=== PATIENT | female | born 1970 ===

== ENCOUNTER 2017-06-06 20:01 | Emergency (ER) | payer SELFPAY ==
[2017-06-06 20:01] VITALS: BMI 25.9
[2017-06-06 20:12] VITALS: BP 131/80; PULSE 83; RESP 18; TEMP 99.4; O2SAT 100
--- NOTE | 2017-06-06 21:10 | ED PDOC ---
HPI: Abdomen Time Seen by Provider: 06/06/17 20:47 Chief Complaint (Nursing): Abdominal Pain Chief Complaint (Provider): Suprapubic pain History Per: Patient History/Exam Limitations: no limitations Onset/Duration Of Symptoms: Days Outside of [place] travel?: No Current Symptoms Are (Timing): Still Present Location Of Pain/Discomfort: Suprapubic Associated Symptoms: Diarrhea, Loss Of Appetite. denies: Fever, Nausea, Vomiting, Constipation, Urinary Symptoms Exacerbating Factors: None Additional Complaint(s): Pt with history of endometrioisis presents with suprapubic pain, vaginal bleeding and watery diarrhea x 15 hours. no fever/chills. Pt reports pain cramping with similar characteristic as the pain she normally gets but stronger. Pt states her menses was normal and ended 2 days ago. Pt reports normal menses in the past. Past Medical History Reviewed: Historical Data, Nursing Documentation, Vital Signs Vital Signs: Last Vital Signs Temp 99.4 F 06/06/17 20:04 Pulse 83 06/06/17 20:04 Resp 18 06/06/17 20:04 BP 131/80 06/06/17 20:04 Pulse Ox 100 06/06/17 21:14 - Medical History PMH: Gall Bladder Disease, Seizures Denies: Depression, Chronic Kidney Disease Other PMH: Endometriosis - Surgical History Surgical History: Cholecystectomy - Family History Family History: States: Unknown Family Hx - Living Arrangements Living Arrangements: With Family - Social History Current smoker - smoking cessation education provided: No - Immunization History Hx Tetanus Toxoid Vaccination: No Hx Influenza Vaccination: No Hx Pneumococcal Vaccination: No - Home Medications Home Medications: Ambulatory Orders Medication Instructions Recorded Ibuprofen [Motrin] 600 mg PO DAILY 01/29/16 Divalproex [Depakote DR] 250 mg PO BID 02/15/16 traMADol [Ultram] 50 mg PO PRN PRN 04/14/17 traMADol [Ultram] 50 mg PO TID #15 tab 04/14/17 - Allergies Allergies/Adverse Reactions: Allergies Allergy/AdvReac Type Severity Reaction Status Date / Time metoclopramide HCl Allergy Severe ANAPHYLAXIS Verified 01/29/16 18:07 [From [facility]] Physical Exam - Reviewed Nursing Documentation Reviewed: Yes Vital Signs Reviewed: Yes - Physical Exam Appears: Positive for: Well, Non-toxic, No Acute Distress Head Exam: Positive for: ATRAUMATIC, NORMAL INSPECTION, NORMOCEPHALIC Skin: Positive for: Normal Color, Warm, DRY Eye Exam: Positive for: Normal appearance ENT: Positive for: Normal ENT Inspection Neck: Positive for: Normal, Painless ROM Cardiovascular/Chest: Positive for: Regular Rate, Rhythm Respiratory: Positive for: Normal Breath Sounds. Negative for: Accessory Muscle Use, Respiratory Distress Gastrointestinal/Abdominal: Positive for: Bowel Sounds, Soft, Tenderness ( Suprapubic ). Negative for: Normal Exam Back: Positive for: Normal Inspection Extremity: Positive for: Normal ROM Neurologic/Psych: Positive for: Alert, Oriented - Laboratory Results Result Diagrams: 06/06/17 21:09 - ECG O2 Sat by Pulse Oximetry: 100 Medical Decision Making Medical Decision Making: Pt does not want to wait for CMP. Pt found with 10cc flush and tab in bag, security and Marc charge nurse aware. Disposition - Clinical Impression Clinical Impression: Abdominal pain - Patient ED Disposition Is Patient to be Admitted: No Counseled Patient/Family Regarding: Diagnosis, Need For Followup - Disposition [facility]errals: [facility] [Outside] Disposition: Routine/Home Disposition Time: 22:14 Condition: GOOD Instructions: Endometriosis (ED) Forms: [facility] (Welsh)
[2017-06-06 21:23] LABS: BASO # 0.1 K/uL (0.0-0.2); BASO % 0.7 % (0.0-2.0); HEMATOCRIT 32.4 % (34.0-47.0); LYMPH % 10.5 % (20.0-40.0); MEAN CELL VOLUME 96.8 fl (81.0-99.0); MEAN CORPUSCULAR HEMOGLOBIN 33.2 pg (27.0-31.0); MEAN CORPUSCULAR HGB CONC 34.3 g/dL (33.0-37.0); MONO # 0.6 K/uL (0.0-0.8); MONO % 6.1 % (0.0-10.0); NEUT # 7.8 K/uL (1.8-7.0); NEUT % 82.7 % (50.0-75.0); NRBC % 0.1 % (0.0-0.0); WHITE BLOOD COUNT 9.4 K/uL (4.8-10.8)
[2017-06-06 21:33] LABS: PARTIAL THROMBOPLASTIN TIME 27.4 Seconds (25.6-37.1)
[2017-06-06 21:47] LABS: RBC URINE 99 /hpf (0-3); URINE BACTERIA RARE (<OCC); URINE BILIRUBIN NEGATIVE (NEGATIVE); URINE BLOOD LARGE (NEGATIVE); URINE COLOR STRAW (YELLOW); URINE GLUCOSE (UA) NEG (Normal); URINE KETONE NEGATIVE (NEGATIVE); URINE LEUKOCYTE ESTERASE NEG Leu/uL (Negative); URINE PROTEIN NEGATIVE (NEGATIVE); URINE UROBILINOGEN 0.2-1.0 mg/dL (0.2-1.0); WBC URINE 5 /hpf (0-5)
[2017-06-06 22:53] LABS: ALB/GLOB RATIO 1.1 (1.0-2.1); ALKALINE PHOSPHATASE 91 U/L (38-126); ALT/SGPT 24 U/L (9-52); AST/SGOT 63 U/L (14-36); BILIRUBIN,TOTAL 1.1 mg/dl (0.2-1.3); BLOOD UREA NITROGEN 7 mg/dl (7-17); CALCIUM 9.2 mg/dL (8.4-10.2); CARBON DIOXIDE 22 mmol/L (22-30); CHLORIDE 107 mmol/L (98-107); GFR AFRICAN-AMERICAN > 60; GLUCOSE,RANDOM 110 mg/dL (65-105); SODIUM 143 mmol/l (132-148); TOTAL PROTEIN 8.7 G/DL (6.3-8.2)
[2017-06-06 22:58] LABS: POTASSIUM 4.8 MMOL/L (3.6-5.0)
== END 2017-06-06 22:40 | disposition home or self-care (01) ==
LOC: H.ER 20:01
DX: R10.9 Unspecified abdominal pain (principal); R19.7 Diarrhea, unspecified
CPT/HCPCS: 80053; 81003; 81025; 85025; 85610; 85730; 87086; 96372; 99282; J2270

== ENCOUNTER 2019-01-01 20:24 | Emergency (ER) | payer MEDICAID ==
[2019-01-01 20:25] VITALS: BMI 25.9
--- NOTE | 2019-01-01 20:57 | ED PDOC ---
HPI: General Adult Time Seen by Provider: 01/01/19 20:50 Chief Complaint (Nursing): Medical Clearance Chief Complaint (Provider): Medical Clearance History Per: Patient History/Exam Limitations: no limitations Onset/Duration Of Symptoms: Days Current Symptoms Are (Timing): Still Present Additional Complaint(s): 48 y/o female with a PMHx of endometriosis and seizure disorder brought in by police for medical and psychiatric clearance. Patient notes of having right ankle pain after mis-stepping of which she was evaluated at [facility] [place] ago and was told that the XR was negative. Patient reports pain is located along the medial aspect of the ankle and anterior aspect of the leg. PMD: Past Medical History Reviewed: Historical Data, Nursing Documentation, Vital Signs Vital Signs: Last Vital Signs Temp 98.3 F 01/01/19 20:36 Pulse 81 01/01/19 20:36 Resp 18 01/01/19 20:36 BP 135/74 01/01/19 20:36 Pulse Ox 99 01/01/19 20:36 - Medical History PMH: Gall Bladder Disease, Seizures Denies: Depression, Chronic Kidney Disease Other PMH: Endometriosis - Surgical History Surgical History: Cholecystectomy - Family History Family History: States: Unknown Family Hx - Immunization History Hx Tetanus Toxoid Vaccination: No Hx Influenza Vaccination: No Hx Pneumococcal Vaccination: No - Home Medications Home Medications: Ambulatory Orders Medication Instructions Recorded Divalproex [Depakote DR] 250 mg PO BID 02/15/16 traMADol [Ultram] 50 mg PO PRN PRN 04/14/17 Naproxen 375 mg PO Q8 PRN #21 tablet 01/01/19 - Allergies Allergies/Adverse Reactions: Allergies Allergy/AdvReac Type Severity Reaction Status Date / Time metoclopramide HCl Allergy Severe ANAPHYLAXIS Verified 01/01/19 20:36 [From [facility]] Review of Systems ROS Statement: Except As Marked, All Systems Reviewed And Found Negative Constitutional: Positive for: Other (medical and psychiatric clearance) Musculoskeletal: Positive for: Leg Pain (right leg pain), Foot Pain (right ankle pain ) Physical Exam - Reviewed Nursing Documentation Reviewed: Yes Vital Signs Reviewed: Yes - Physical Exam Appears: Positive for: No Acute Distress Extremity: Positive for: Tenderness (Tenderness of the anterior leg. Non-tender foot). Negative for: Swelling - ECG O2 Sat by Pulse Oximetry: 99 (RA) Pulse Ox Interpretation: Normal - Progress ED Course And Treament: SEEN BY CRISIS CLEARED BY DR. MAHER. D/C HOME DIAGNOSIS ADJUSTMENT DISORDER XRY OF RIGHT ANKLE: NO FX XRY OF RIGHT TIB-FIB: NO FX CALLED TO BEDSIDE 22:00PM PATIENT IS CONCERNED SHE IS HAVING SYMPTOMS OF WITHDRAWAL. VITALS REPEATED WNL PULSE OX 100% PULSE 80 BP 102/80. PATIENT NOTED TO BE DRY HEAVING AND HYPERVENTILATING. PATIENT STATES SHE IS ANXIOUS B/C SHE HAS CHRONIC LOWER ABDOMINAL PAIN FROM ENDOMETRIOSIS AND CURRENTLY FEELS LIKE SHE IS IN PAIN. CONCERNED THAT SHE HASN'T TAKEN TRAMADOL SINCE YESTERDAY. ZOFRAN 4 MG IM TRAMADOL 50 MG X 1 DOSE Medical Decision Making Medical Decision Making: Time: 2050 Impression: Psychiatric and Medical Clearance Plan: -- Tylenol 975 mg PO -- Ankle Right 3 Views XR -- Tibia Fibula Right XR Scribe Attestation: Documented by Jazz Melendez, acting as a scribe Indigo Trevino PA-C. Provider Scribe Attestation: All medical record entries made by the Scribe were at my direction and personally dictated by me. I have reviewed the chart and agree that the record accurately reflects my personal performance of the history, physical exam, me dical decision making, and the department course for this patient. I have also personally directed, reviewed, and agree with the discharge instructions and disposition. Disposition - Clinical Impression Clinical Impression: Hyperventilation syndrome, Adjustment disorder, Right ankle sprain - Patient ED Disposition Is Patient to be Admitted: No - Disposition Referrals: Podiatry Clinic [Outside] Disposition: Routine/Home Disposition Time: 22:07 Condition: FAIR Additional Instructions: PATIENT IS MEDICALLY AND PSYCHIATRICALLY CLEARED FOR INCARCERATION Prescriptions: Naproxen 375 mg PO Q8 PRN #21 tablet PRN Reason: Pain, Moderate (4-7) Instructions: Ankle Sprain, Adjustment Disorder, Anxiety, Adult (DC)
[2019-01-01 22:53] VITALS: BP 144/83; PULSE 91; RESP 18; TEMP 97.9; O2SAT 100
--- NOTE | 2019-01-02 16:48 | RAD ---
Date of service: 01/01/2019 PROCEDURE: Right Ankle Radiographs. HISTORY: Ankle injury COMPARISON: Comparison made with concurrent radiographs of the right tibia and fibula. TECHNIQUE: 3 views obtained. FINDINGS: BONES: The current study reveals no definitive evidence of acute displaced fracture nor dislocation. Talar dome intact there is a small linear lucency in the medial cortex of the distal tibial diametaphysis that probably represents a vascular groove. JOINTS: Ankle mortise maintained. No significant osteoarthritis SOFT TISSUES: There is moderate to fairly significant medial soft tissue swelling adjacent to the distal 3rd of the left tibia and fibula extending into the inferiorly over the medial malleolus. OTHER FINDINGS: None. IMPRESSION: No definitive radiographic evidence of acute displaced fracture nor dislocation. There is moderate to fairly significant medial soft tissue swelling. Probable vascular groove along the distal medial tibial diametaphysis..
--- NOTE | 2019-01-02 16:51 | RAD ---
Date of service: 01/01/2019 PROCEDURE: Radiographs of the right tibia and fibula. HISTORY: Right ankle injury COMPARISON: Comparison made with concurrent radiographs of the right ankle TECHNIQUE: Frontal and lateral views obtained. 2 views obtained. FINDINGS: BONES: The current study reveals no definitive evidence of acute displaced fracture nor dislocation. Talar dome intact there is a small linear lucency in the medial cortex of the distal tibial diametaphysis that probably represents a vascular groove. JOINT SPACES: Unremarkable. OTHER FINDINGS: There is moderate to fairly significant medial soft tissue swelling adjacent to the distal 1/3 of the left tibia and fibula extending into the inferiorly over the medial malleolus. IMPRESSION: The current study reveals no definitive evidence of acute displaced fracture nor dislocation. Talar dome intact there is a small linear lucency in the medial cortex of the distal tibial diametaphysis that probably represents a vascular groove. Moderate to fairly significant medial soft tissue swelling.
== END 2019-01-01 23:05 ==
LOC: H.ER 20:24
DX: F43.20 Adjustment disorder, unspecified (principal); Z00.8 Encounter for other general examination; S93.401A Sprain of unspecified ligament of right ankle, initial encounter; F45.8 Other somatoform disorders; G40.909 Epilepsy, unspecified, not intractable, without status epilepticus; N80.9 Endometriosis, unspecified; Z88.8 Allergy status to other drugs, medicaments and biological substances
CPT/HCPCS: 73590; 73610; 96372; 99283; J2405